=== PATIENT | male | born 1980 | race Hispanic/Latino ===

== ENCOUNTER 2017-01-11 06:15 | Emergency (ER) | payer BC ==
[2017-01-11 06:24] VITALS: BMI 32.3
[2017-01-11 06:26] VITALS: BP 128/75; PULSE 116; RESP 18; TEMP 98.7; O2SAT 99
--- NOTE | 2017-01-11 06:48 | ED PDOC ---
HPI: Trauma/Fall - HPI History Per: Patient History/Exam Limitations: no limitations Onset/Duration Of Symptoms: Days Additional History Per: Patient Additional Complaint(s): s/p fall yesterday, states he was in the parking lot of a hotel and accidentally fell into a "hole" next to the lot, walked back to the hotel and slept, came to ER now because of pain. Took NSAIDs. denies other injury/head injury. Past Medical History Reviewed: Historical Data, Nursing Documentation, Vital Signs Vital Signs: Last Vital Signs Temp 98.7 F 01/11/17 06:24 Pulse 116 H 01/11/17 06:24 Resp 18 01/11/17 06:24 BP 128/75 01/11/17 06:24 Pulse Ox 99 01/11/17 06:49 - Medical History PMH: No Chronic Diseases - Family History Family History: States: Unknown Family Hx - Allergies Allergies/Adverse Reactions: Allergies Allergy/AdvReac Type Severity Reaction Status Date / Time No Known Allergies Allergy Verified 01/11/17 06:24 Review of Systems ROS Statement: Except As Marked, All Systems Reviewed And Found Negative Musculoskeletal: Positive for: Leg Pain Physical Exam - Reviewed Nursing Documentation Reviewed: Yes Vital Signs Reviewed: Yes - Physical Exam Appears: Positive for: Well, Non-toxic Head Exam: Positive for: ATRAUMATIC, NORMAL INSPECTION, NORMOCEPHALIC Skin: Positive for: Normal Color Eye Exam: Positive for: Normal appearance, EOMI Extremity: Positive for: Normal ROM, Tenderness (TTP in mid tibia, medial and lateral malleolus; abrasions to knee), Capillary Refill (normal). Negative for : Deformity, Swelling - ECG O2 Sat by Pulse Oximetry: 99 Pulse Ox Interpretation: Normal Medical Decision Making Medical Decision Making: s/p fall, according to patient. will get images to r/o fracture. [address] griffin pending xrays. Disposition - Clinical Impression Clinical Impression: Leg pain - Patient ED Disposition Is Patient to be Admitted: Transfer of Care - Disposition Disposition: Transfer of Care Disposition Time: 07:00 Condition: STABLE Patient Signed Over To: Terry Griffin III Handoff Comments: pending xrays and reassessment
--- NOTE | 2017-01-11 07:03 | ED PDOC ---
- ECG O2 Sat by Pulse Oximetry: 99 Pulse Ox Interpretation: Normal Medical Decision Making Medical Decision Making: recd on endorsement for followup xrays and dispo XRAys tib fib and ankle prelim interpretation by me negative for fracture or dislocation Will Rx bacitracin for abrasion, L knee immobilizer, BRYANT ankle bandage and motrin. Crutch training provided. Followup orthopedics for further testing prn/ Disposition Counseled Patient/Family Regarding: Studies Performed, Diagnosis, Need For Followup, Rx Given - Clinical Impression Clinical Impression: Leg pain, Abrasion - POA Present On Arrival: Falls Or Trauma - Disposition Referrals: Thomas Hassan III, MD [Staff Provider] - Disposition: Routine/Home Disposition Time: 07:58 Condition: STABLE Additional Instructions: Wear BRYANT wrap, use antibiotic cream 2x daily for 4 days, use motrin for pain as directed. Followup with PMD or orthopedics if pain persists for further testing/ treatment. Prescriptions: Bacitracin OINT 1 applic TP BID #1 tube Ibuprofen [Motrin Tab] 600 mg PO Q6 PRN #15 tab PRN Reason: Pain, Moderate (4-7) Instructions: Abrasion (ED), Leg Sprain (ED) Forms: netomat (Urdu)
--- NOTE | 2017-01-11 10:13 | RAD ---
PROCEDURE: Left Ankle Radiographs. HISTORY: s/p fall yesterday COMPARISON: None FINDINGS: BONES: No acute fracture or destructive bony lesion identified. JOINTS: Normal. No osteoarthritis. Ankle mortise maintained. Talar dome intact SOFT TISSUES: Normal. OTHER FINDINGS: None. IMPRESSION: Unremarkable left ankle radiographs.
--- NOTE | 2017-01-11 10:14 | RAD ---
PROCEDURE: Radiographs of the left tibia and fibula. HISTORY: s/p fall yesterday COMPARISON: None available. TECHNIQUE: Frontal and lateral views obtained. FINDINGS: BONES: No fracture or destructive lesion. JOINT SPACES: Unremarkable. OTHER FINDINGS: None. IMPRESSION: Unremarkable radiographs of the left tibia and fibula.
== END 2017-01-11 08:32 | disposition home or self-care (01) ==
LOC: H.ER 06:15
DX: M79.605 Pain in left leg (principal); S80.812A Abrasion, left lower leg, initial encounter; W17.2XXA Fall into hole, initial encounter; Y92.481 Parking lot as the place of occurrence of the external cause